=== PATIENT | female | born 1980 | race Caucasian/White ===

== ENCOUNTER → 2018-04-04 18:28 | Outpatient (CLI) | payer BC, OTHER, SELFPAY ==
[2018-04-04 19:54] LABS: Free T4 (Free Thyroxine) 1.13 ng/dl (0.76-1.46); Thyroid Stimulating Hormone 1.68 uIU/ml (0.358-3.740)
== END ==
PROVIDERS: Visit Provider Emergency Medicine
DX: E03.9 Hypothyroidism, unspecified (principal)
CPT/HCPCS: 84439; 84443

== ENCOUNTER → 2022-10-20 14:30 | Outpatient (CLI) | payer BC, SELFPAY ==
[2022-10-20 19:43] LABS: Basophils % 0.2 % (0.1-2.0); Eosinophils # 0.1 K/mm3 (0.0-0.4); Eosinophils % 0.9 % (0.1-12.0); Hematocrit 38.6 % (37.0-47.0); Hemoglobin 12.6 g/dL (12.2-16.2); Lymphocytes % 18.8 % (10-50); Mean Corpuscular HGB Conc 32.7 g/dL (31.8-35.4); Mean Corpuscular Hemoglobin 29.2 pg (27.0-31.2); Mean Corpuscular Volume 89.1 fl (81-99); Mean Platelet Volume 9.4 fl (7.4-10.4); Monocytes # 0.6 K/mm3 (0.1-1.0); Monocytes % 5.4 % (1.7-9.3); Neutrophils # 7.9 K/mm3 (1.8-7.8); Neutrophils % 74.7 % (37.0-80.0); Platelet Count 387 K/mm3 (142-424); Red Blood Count 4.33 M/mm3 (4.20-5.40); Red Cell Distribution Width 13.2 % (11.5-17.5); White Blood Count 10.6 K/mm3 (4.8-10.8)
[2022-10-20 20:05] LABS: Alanine Aminotransferase 81 U/L (12-78); Albumin/Globulin Ratio 1.4 (1.1-1.8); Alkaline Phosphatase 110 U/L (38-126); Anion Gap 16.2 mEq/L (5-15); Aspartate Amino Transferase 39 U/L (14-36); Bilirubin,Total 0.2 mg/dl (0.2-1.3); Blood Urea Nitrogen 16 mg/dl (7-17); Calcium 8.9 mg/dl (8.4-10.2); Carbon Dioxide 26 mmol/L (22.0-30.0); Chloride 100 mmol/L (98-107); Chol/HDL Ratio 3.6 (1-3.5); Cholesterol 149 mg/dl (140-200); Estimated Glomerular Filt Rate 78 ml/min (>60); GFR (African American) 94 ML/MIN (>60); Globulin 2.8 g/dL (1.3-3.2); Glucose 94 mg/dl (74-100); HDL Cholesterol 41 mg/dl (40-60); Potassium 4.2 mmoL/L (3.5-5.1); Sodium 138 mmol/L (136-145); Total Protein,Serum 6.8 g/dl (6.3-8.2); Triglycerides 168 mg/dl (30-150); VLDL Cholesterol 34 mg/dL (0-40)
[2022-10-20 20:16] LABS: Direct LDL Cholesterol 92.22 mg/dL (100-129)
[2022-10-20 20:18] LABS: Hemoglobin A1C 5.1 % (4.0-6.0)
[2022-10-20 20:25] LABS: 25-OH Vitamin D, Total 28.7 ng/mL (30-100)
[2022-10-20 20:38] LABS: Thyroid Stimulating Hormone 2.84 uIU/mL (0.465-4.68)
[2022-10-20 20:57] LABS: Vitamin B12 276 pg/mL (239-931)
== END ==
PROVIDERS: PCP Physician Assistant; Visit Provider Physician Assistant
DX: E16.2 Hypoglycemia, unspecified (principal); Z00.00 Encounter for general adult medical examination without abnormal findings; E55.9 Vitamin D deficiency, unspecified
CPT/HCPCS: 80053; 80061; 82306; 82607; 83036; 84443; 85025

== ENCOUNTER 2024-09-15 07:48 | Outpatient (CLI) | payer BC, SELFPAY ==
--- NOTE | 2024-09-15 07:59 | MM_ITS ---
PROCEDURE INFORMATION: Exam: MG Bilateral Screening 3D Mammography Exam date and time: 09/15/2024 8:06 AM Age: 43 years old Clinical indication: Screening examination TECHNIQUE: Imaging protocol: Bilateral Screening tomosynthesis and 2D mammography including computer-aided detection (CAD) when performed. COMPARISON: No relevant prior studies available. FINDINGS: MAMMOGRAPHY: Breast composition: The breasts are heterogeneously dense, which may obscure small masses. Mass: Questioned 0.6 cm mass lower outer left breast middle depth. Architectural distortion: None. Calcifications: No suspicious calcifications. Asymmetric density: None. Skin thickening: None. Axillary adenopathy: None. Implants: Subpectoral silicone breast implants are present. IMPRESSION: Questioned subcentimeter left breast mass.Recommend left breast diagnostic mammogram including spot compression views of the left breast in the CC and MLO projections, a full 90 degree lateral view, and left breast ultrasound for further evaluation. ASSESSMENT: BI-RADS Category 0: Incomplete- Need Additional Imaging Evaluation.
== END 2024-09-15 23:59 | disposition home or self-care (01) ==
LOC: RAD 07:52
PROVIDERS: PCP Physician Assistant; Visit Provider Physician Assistant
DX: Z12.31 Encounter for screening mammogram for malignant neoplasm of breast (principal)
CPT/HCPCS: 77063; 77067

== ENCOUNTER 2024-10-02 13:58 | Outpatient (CLI) | payer BC, SELFPAY ==
--- NOTE | 2024-10-02 14:01 | US_ITS ---
PROCEDURE INFORMATION: Exam: US Left Breast, Complete MG Left Diagnostic Breast Tomosynthesis Exam date and time: 10/02/2024 2:26 PM Age: 43 years old Clinical indication: Patient recalled on the basis of a screening mammogram for further evaluation; Left breast; mass TECHNIQUE: Imaging protocol: Complete ultrasound of all four quadrants of the left breast and the retroareolar regions, including ultrasound of the axilla when performed. Left Diagnostic tomosynthesis and 2D mammography including computer-aided detection (CAD) when performed. Unilateral or bilateral exam. COMPARISON: 1. US BREAST LT COMPLETE 10/02/2024 2:08 PM 2. MG MM DIG SC MAMM IMPLANT BI CAD 09/15/2024 8:06 AM FINDINGS: MAMMOGRAPHY: Breast composition: The breasts are heterogeneously dense, which may obscure small masses. Breast mammogram findings: Digital diagnostic spot compression views of the left breast and 90 degree lateral view of the left breast demonstrate normal overlapping fibroglandular structures without persistent mass or asymmetry identified. ULTRASOUND: Breast ultrasound findings: Sonographic images of the left breast including the retroareolar region, all 4 quadrants and the axilla do not demonstrate any solid or cystic masses. Cursors were placed over normal adipose tissue. No architectural distortion or acoustical shadowing. No skin thickening or axillary adenopathy. IMPRESSION: No mammographic or sonographic evidence of malignancy. MetAnnual bilateral mammographic screening is recommended unless otherwise clinically indicated. ASSESSMENT: BI-RADS Category 1: Negative.
== END 2024-10-02 23:59 | disposition home or self-care (01) ==
LOC: RAD 13:59
PROVIDERS: PCP Physician Assistant; Visit Provider Physician Assistant
DX: N63.20 Unspecified lump in the left breast, unspecified quadrant (principal)
CPT/HCPCS: 76641; 77061; 77065; G0279